=== PATIENT | female | born 1955 | race Hispanic/Latino ===

== ENCOUNTER → 2017-07-09 | Outpatient (CLI) | payer OTHER ==
--- NOTE | 2017-07-09 09:16 | Diagnostic Imaging Report ---
PROCEDURE:ABDOMINAL ULTRASOUND COMPARISON:None. INDICATIONS:GENERALIZED ABDOMEN PAIN FINDINGS: Liver: 14.7 cm in length in the right midclavicular line. Normal hepatic parenchymal echogenicity. No focal mass. Main portal vein: 0.9 cm in caliber. Hepatopedal flow. Gallbladder: Large shadowing calculus within the gallbladder lumen. No wall thickening or pericholecystic fluid. Common Bile Duct: 0.6 cm in caliber, upper limit of normal.. No echogenic filling defect. Sonographic Stewart's sign: Reported as negative. Right kidney: 11 cm in length. No solid or cystic mass, or echogenic calculi. Mild hydronephrosis. Normal renal cortical echogenicity. Left kidney: 10.9 cm in length. No solid or cystic mass, echogenic calculi, or hydronephrosis. Normal renal cortical echogenicity. Spleen: 7.8 cm in length. Uniform parenchymal echotexture. Pancreas: The visualized portions of the pancreas are normal. Inferior vena cava: Patent. Aorta: Non-aneurysmal. Ascites: None. CONCLUSION: Cholelithiasis without sonographic evidence of acute cholecystitis. Mild right hydronephrosis without obstructing proximal calculus identified. CT of the abdomen and pelvis without contrast (renal stone protocol) is suggested for further evaluation for distal obstructing calculus. Dictated by: Jay De Luna M.D. on 07/09/2017 at 9:18 Electronically approved by: Jay De Luna M.D. on 07/09/2017 at 9:18
== END ==
LOC: US 08:11
PROVIDERS: ATTEND Internal Medicine
DX: R10.84 Generalized abdominal pain (principal)
CPT/HCPCS: 76700

== ENCOUNTER → 2017-08-13 | Outpatient (CLI) | payer OTHER ==
--- NOTE | 2017-08-13 18:51 | Diagnostic Imaging Report ---
Hepatobiliary Scan with Gallbladder Ejection Fraction Clinical information: Gallstones; RUQ abdominal pain Report: Following intravenous administration of 5.8 millicuries of Tc-99m mebrofenin, dynamic images of the abdomen in the anterior projection were obtained through 30 minutes. Sincalide (CCK analog) 1.4 micrograms was administered intravenously over 30 minutes with additional imaging for determination of gallbladder ejection fraction. Perfusion to the liver is normal. Extraction of tracer from the blood pool by the liver parenchyma is normal. Tracer is seen promptly within the biliary tract. The gallbladder begins to fill by 6 minutes post-injection of tracer and fills adequately. Tracer is seen in the small bowel during the sincalide infusion. The gallbladder ejection fraction with administration of sincalide is 83% (normal greater than 40%). Impression: 1. Filling of the gallbladder excludes the diagnosis of acute cystic duct obstruction/acute cholecystitis. 2. Normal gallbladder ejection fraction of 83% does not support the clinical diagnosis of chronic cholecystitis/gallbladder dyskinesia. Signed by: Dr. Melodie Davison M.D. on 08/13/2017 6:43 PM
== END ==
LOC: NM 13:48
PROVIDERS: ATTEND Internal Medicine
DX: K80.20 Calculus of gallbladder without cholecystitis without obstruction (principal)
CPT/HCPCS: 78227; A9537

== ENCOUNTER → 2017-10-08 | Outpatient (CLI) | payer OTHER ==
[2017-10-08 09:41] LABS: ALANINE AMINOTRANSFERASE 9 IU/L (0-55); ALBUMIN 3.5 g/dL (3.5-5.0); ALBUMIN/GLOBULIN RATIO 1.1 (0.8-2.0); ALKALINE PHOSPHATASE 74 IU/L (40-150); ANION GAP 11.8 mmol/L (8-16); BLOOD UREA NITROGEN 19 mg/dL (7-26); BUN/CREATININE RATIO 29 (6-25); CALCIUM 8.7 mg/dL (8.4-10.2); CARBON DIOXIDE 25 mmol/L (22-29); CHLORIDE 106 mmol/L (98-107); CREATININE, SERUM 0.65 mg/dL (0.57-1.11); EST GLOMERULAR FILTRATION RATE > 60 ML/MIN (60-); GLUCOSE 96 mg/dL (74-118); POTASSIUM 3.8 mmol/L (3.5-5.1); SODIUM 139 mmol/L (136-145)
--- NOTE | 2017-10-08 10:00 | Diagnostic Imaging Report ---
PROCEDURE:ABDOMINAL ULTRASOUND COMPARISON:None. INDICATIONS: GASTRITIS, EPIGASTRIC PAIN, HTN TECHNIQUE: Transverse and longitudinal images of the upper abdomen were obtained. FINDINGS: Liver: Size: 12.6 cm in the right midclavicular line, normal Appearance: Normal echogenicity, smooth contour Mass: No focal masses Spleen: Size: 8.9cm in length, normal Echogenicity: Normal Mass: No focal masses Gallbladder: Stones/Sludge: There is a 2.5 cm stone with associated shaddowing. Appearance: No wall thickening, pericholecystic fluid or hydrops. Sonographic Stewart's Sign: Negative Bile Ducts: Intrahepatic Ducts: No dilatation Extrahepatic Ducts: Common bile duct measures 0.6 cm, no dilatation Pancreas: Visualized portions of the neck and proximal body are normal. Right Kidney: Size: 11.4 cm Echogenicity: Normal Collecting System: Moderate right hydronephrosis. Stone: None Cyst/Mass: None. Left Kidney: Size: 11 cm Echogenicity: Normal Collecting System: No hydronephrosis Stone: None Cyst/Mass: A 2.8 cm left inferior pole cyst with an internal 1.2 cm calcification. Vessels: Aorta: Visualized portions are normal Inferior Vena Cava: Visualized portions and normal Main Portal Vein: 10 cm, normal size with hepatopedal flow. Free Fluid: No ascites or pleural effusions IMPRESSION: Cholelithiasis without sonographic evidence of cholecystitis. CBD measuring in the upper limits of normal at 6 mm without definite stone. Moderate right hydronephrosis. A 2.8 cm cyst in the left kidney with thick internal calcification. Given the associated complexity, a follow-up ultrasound or renal protocol CT is suggested in 6 months to assess for stability. Dictated by: CHASE DRAKE M.D. on 10/08/2017 at 10:06 Electronically approved by: CHASE DRAKE M.D. on 10/08/2017 at 10:06
== END ==
LOC: US 08:10
PROVIDERS: ATTEND Internal Medicine Gastroenterology
DX: R10.13 Epigastric pain (principal); K29.70 Gastritis, unspecified, without bleeding; I10 Essential (primary) hypertension; K80.20 Calculus of gallbladder without cholecystitis without obstruction; N13.30 Unspecified hydronephrosis
CPT/HCPCS: 36415; 76700; 80053

== ENCOUNTER → 2017-10-12 | Day surgery (SDC) | payer OTHER ==
[~2017-10-12] MED LIST: CEFTRIAXONE SOD 1 GM VIAL ONE; DEXAMETHASONE SOD PHOS INJ 4 MG/ML VIAL ONE; FENTANYL CITRATE/PF 100MCG/2 ML INJ ONE; IOPAMIDOL 300MG/ML 50ML INFUS..BTL IV ONE; IRON325 M1 PO; LIDOCAINE HCL 2% LOCAL INJ 5 ML SDV VIAL INJ ONE; METHIMAZOLE10 MG PO; MIDAZOLAM HCL 2 MG/2 ML VIAL ONE; OMEPRAZOLE40 MG PO; ONDANSETRON HCL INJ 2 MG/ML VIAL ONE; PROPOFOL IV EMULSION 10 MG/ML 20 ML VIAL ONE; SEVOFLURANE INHAL SOLN 250 ML PEN BTL ONE; TYLENOL EXTRA500 MG PO; ZESTRIL20 MG PO
--- NOTE | 2017-12-04 17:10 | Operative Report ---
DATE OF PROCEDURE: October 12, 2017 PREOPERATIVE DIAGNOSES: 1. Right ureteropelvic junction obstruction. 2. Right hydronephrosis due to obstruction. 3. Urinary tract infections. POSTOPERATIVE DIAGNOSES: 1. Right ureteropelvic junction obstruction. 2. Right hydronephrosis due to obstruction. 3. Urinary tract infections. 4. Grade 2 to 3 cystocele. 5. Urethral hypermobility. 6. Atrophic (senile) vaginitis. OPERATIONS PERFORMED: 1. Cystourethroscopy with bilateral ureteral catheterization and retrograde ureteropyelography (separate procedure performed for the urinary tract infections). 2. Interpretation of retrograde ureteropyelography. 3. Supervision of fluoroscopy. No radiologist present. 4. Cystourethroscopy with dilation of ureteropelvic junction obstruction on the right-hand side. 5. Radiological services for the supervision and interpretation of stricture dilation. 6. Pelvic examination under anesthesia. ANESTHESIA: General. COMPLICATIONS: None. CLINICAL SUMMARY: Claudia Ruggiero is a 61-year-old woman with right-sided hydronephrosis. She has a history of right-sided stone. She has a history of ESWL and inability to stent. She has a history of percutaneous nephrostomy on the right-hand side. She is brought to the operating room for evaluation of her right-sided system and management as needed. She is aware of the risks of bleeding, infection, injury to adjacent structures, need for additional procedures and elected to proceed. OPERATIVE PROCEDURE IN DETAIL: Informed consent was verified. Claudia Ruggiero was properly identified, taken to the operating room and placed on the cystoscopy table in supine position. Anesthesia was uneventfully begun. The patient was then carefully and gently repositioned in the dorsal lithotomy position with all pressure points well padded. Her genitalia were prepared and draped in the usual sterile fashion. A 22.5-[place] Islander cystoscope sheath with the obturator in place was atraumatically inserted into the patient's urethra, and the bladder was drained. Panendoscopy of the urinary bladder revealed no suspicious mucosal lesions, no tumors, no stones and no diverticula. Normally positioned and configured ureteral orifices were identified. A ureteral catheter was used to cannulate each ureter, and retrograde ureteropyelograms were performed. Utilizing a guidewire, we negotiated a guidewire up into the proximal collecting system on the right-hand side. We then placed a double-lumen ureteral catheter over this guidewire to the level of UPJ. Contrast was injected. We then utilized the double-lumen ureteral catheter as a coaxial dilator sheath as we dilated across the obstructed UPJ region. We obtained a hydronephrotic drip that was clear. With cystoscopic and fluoroscopic guidance, a right-sided indwelling ureteral stent was then placed. It was coiled in the patient's kidney as well as the patient's bladder. The retaining suture was cut short. Patient's bladder was then drained. The cystoscope was withdrawn. Pelvic examination under anesthesia revealed a grade 2 to 3 cystocele with urethral hypermobility and atrophic vaginitis. No abnormal palpable pelvic masses could be appreciated. There were no obvious mucosal lesions. The patient was then uneventfully reversed from anesthesia and taken to the recovery room in stable condition. Interpretation of retrograde ureteropyelography: Contrast was instilled in retrograde fashion bilaterally. The left side was unremarkable. There were no tumors, no stones and no diverticula. Unobstructed drainage was observed fluoroscopically. The right ureter was unremarkable. There was obstruction at the UPJ region with severe hydronephrosis and caliceal blunting with a capacious renal pelvis. The stent was in good position coiled in the patient's kidney as well as the patient's bladder at the end of the case. The patient was uneventfully reversed from anesthesia and taken to the recovery room in stable condition. There were no complications to the procedure. She tolerated the procedure well. Will plan on obtaining a renogram without Lasix to evaluate the function of her kidney with the stent in place, and hopefully she will have enough renal function that we may proceed with a right pyeloplasty. Job#: [id number] EV cc:RIA GARCIA MD
--- OUTSIDE RECORDS SUMMARY | 2017-12-06 00:44 | XMS REPORT ---
Author Author [facility] Address Unknown Phone Unavailable Care Team Providers Care Android Programmer Name Role Phone CHAPITO GUTHRIE Unavailable Unavailable MITCHELL, AMBALLYN Unavailable Unavailable THELMA, TRAVIS Unavailable Unavailable GARCIA, RIA Unavailable Unavailable Problems This patient has no known problems. Allergies, Adverse Reactions, Alerts This patient has no known allergies or adverse reactions. Medications This patient has no known medications. Results Test Description Test Time Test Comments Text Results Atomic Results Result Comments RENAL SCAN W/FLOW FUNCTION 2017-11-23 13:47:00 [place] [address] Patient Name: LACEY VELEZ MR #: [id number] : 1955 Age/Sex: 62/ F Req #: [id number] Adm Physician: Ordered by: CHAPITO GUTHRIE MD Report #: [id number] Location: [place] Room/Bed: Procedure: [id number] NM/RENAL SCAN W/FLOW FUNCTION Exam Date: 11/23/17 Exam Time: 0845 REPORT STATUS: Signed Renal Scan Reason for exam: 62 F with crossing vessel and stricture of ureter without hydronephrosis. Has stent in right ureter. Radiopharmaceutical: Tc-99m MAG3 10 mCi Report: After administration of the radiopharmaceutical, dynamic images of the kidneys were obtained through 40 minutes. LEFT KIDNEY: Perfusion is prompt. The left kidney has a normal reniform shape. Extraction of tracer from the blood pool is normal. Clearance of tracer from the renal parenchyma is prompt. The pelvicaliceal system is not dilated. There is no significant increase in pooling of tracer within the pelvicaliceal system. Drainage of tracer from the pelvicaliceal system is normal. No significant stasis of tracer is seen in the left ureter. RIGHT KIDNEY: Perfusion is prompt. The kidney has a distorted reniform shape with irregular contours and mildly thinned renal cortex. The kidney is reduced in size compared to the left kidney. Extraction of tracer from the blood pool is normal. Clearance of tracer from the renal parenchyma is prompt. There are prominent calices in the kidney but the renal pelvis is not dilated. Increased pooling of tracer is seen within the pelvicaliceal system. Drainage of tracer from the pelvicaliceal system is extremely slow. No significant stasis of tracer is seen in the right ureter. DIFFERENTIAL RENAL FUNCTION: Left kidney 58% and right kidney 42%. Impression: 1. The left kidney shows generally normal function. No hydronephrosis is present. Obstruction is not suspected. 2. Minimal scarring is seen in the right kidney although differential renal function is minimally decreased at 42%. Caliectasis is present but the renal pelvis is not dilated. Physiologically significant obstruction of the renal collecting system at the UPJ cannot be excluded given the very slow drainage of the pelvicalyceal system. Signed by: Dr. Joselito Davison M.D. on 11/23/2017 2 :00 PM Dictated By: JOSELITO DAVISON MD 1400 Transcribed By: MECHE on 11/23/17 1400 COPY TO: CHAPITO GUTHRIE MD CHEST SINGLE (PORTABLE) 2017-10-18 12:31:00 [place] [address] Patient Name: LACEY VELEZ MR #: [id number] : 1955 Age/Sex: 61/ F Req #: [id number] Adm Physician: Ordered by: JESSE MEDRANO MD Report #: [id number] Location: ER Room/Bed: ____ Procedure: [id number] DX/CHEST SINGLE (PORTABLE) Exam Date: 10/18/17 Exam Time: 1049 REPORT STATUS: Signed EXAM: CHEST SINGLE (PORTABLE), AP Portable DATE: 10/18/2017 10:49 AM INDICATION: Chest pain COMPARISON: None FINDINGS: LINES/TUBES: None LUNGS: No consolidations or edema. PLEURA: No effusions or pneumothorax. HEART AND MEDIASTINUM: Normal size and contour. There is calcification within the aorta. BONES AND SOFT TISSUES: No acute findings. Mild degenerative changes of the spine. IMPRESSION: No acute thoracic abnormality. Signed by: Dr. Kimberlee Saxena DO on 10/18/2017 12:33 PM Dictated By: KIMBERLEE SAXENA DO 1233 Transcribed By: MECHE on 10/18/17 1233 COPY TO: JESSE MEDRANO MD US ABDOMEN COMPLETE 2017-10-08 10:06:00 [place] [address] Patient Name: LACEY VELEZ MR #: [id number] : 1955 Age/Sex: 61/F Req #: [id number] Adm Physician: Ordered by: TRAVIS RENEE MD Report #: [id number] Location: Room/Bed: ___ Procedure: US/US ABDOMEN COMPLETE Exam Date: Exam Time: REPORT STATUS: Signed PROCEDURE: ABDOMINAL ULTRASOUND COMPARISON: None. INDICATIONS: GASTRITIS, EPIGASTRIC PAIN, HTN TECHNIQUE: Transverse and longitudinal images of the upper abdomen were obtained. FINDINGS: Liver: Size: 12.6 cm in the right midclavicular line, normal Appearance: Normal echogenicity, smooth contour Mass: No focal masses Spleen: Size: 8.9cm in length, normal Echogenicity: Normal Mass: No focal masses Gallbladder: Stones/ Sludge: There is a 2.5 cm stone with associated shaddowing. Appearance: No wall thickening, pericholecystic fluid or hydrops. Sonographic Stewart's Sign: Negative Bile Ducts: Intrahepatic Ducts: No dilatation Extrahepatic Ducts: Common bile duct measures 0.6 cm, no dilatation Pancreas: Visualized portions of the neck and proximal body are normal. Right Kidney: Size: 11.4 cm Echogenicity: Normal Collecting System: Moderate right hydronephrosis. Stone: None Cyst/Mass: None. Left Kidney: Size: 11 cm Echogenicity: Normal Collecting System: No hydronephrosis Stone: None Cyst/Mass: A 2.8 cm left inferior pole cyst with an internal 1.2 cm calcification. Vessels: Aorta: Visualized portions are normal Inferior Vena Cava: Visualized portions and normal Main Portal Vein: 10 cm , normal size with hepatopedal flow. Free Fluid: No ascites or pleural effusions IMPRESSION: Cholelithiasis without sonographic evidence of cholecystitis. CBD measuring in the upper limits of normal at 6 mm without definite stone. Moderate right hydronephrosis. A 2.8 cm cyst in the left kidney with thick internal calcification. Given the associated complexity, a follow-up ultrasound or renal protocol CT is suggested in 6 months to assess for stability. Dictated by: CHASE DRAKE M.D. on 10/08/2017 at 10:06 Electronically approved by: CHASE DRAKE M.D. on 10/08/2017 at 10:06 Dictated By: CHASE DRAKE MD 1006 Transcribed By: HELENA on 10/08/17 1006 COPY TO: TRAVIS RENEE MD HEPTOBILIARY W PHARM 2017-08-13 18:41:00 [place] [address] Patient Name: LACEY VELEZ MR #: [id number] : 1955 Age/Sex: 61/F Re #: [id number] [facility] Physician: Ordered by: RIA GARCIA MD Report #: [id number] Location: [place] Room/Bed: Procedure: [id number] NM/HEPTOBILIARY W PHARM Exam Date: Exam Time: REPORT STATUS: Signed Hepatobiliary Scan with Gallbladder Ejection Fraction Clinical information: Gallstones; RUQ abdominal pain Report: Following intravenous administration of 5.8 millicuries of Tc-99m mebrofenin, dynamic images of the abdomen in the anterior projection were obtained through 30 minutes. Sincalide (CCK analog) 1.4 micrograms was administered intravenously over 30 minutes with additional imaging for determination of gallbladder ejection fraction. Perfusion to the liver is normal. Extraction of tracer from the blood pool by the liver parenchyma is normal. Tracer is seen promptly within the biliary tract. The gallbladder begins to fill by 6 minutes post-injection of tracer and fills adequately. Tracer is seen in the small bowel during the sincalide infusion. The gallbladder ejection fraction with administration of sincalide is 83% ( normal greater than 40%). Impression: 1. Filling of the gallbladder excludes the diagnosis of acute cystic duct obstruction/acute cholecystitis. 2. Normal gallbladder ejection fraction of 83% does not support the clinical diagnosis of chronic cholecystitis/gallbladder dyskinesia. Signed by: Dr. Joselito Davison M.D. on 08/13/2017 6:43 PM Dictated By: JOSELITO DAVISON MD 42 Transcribed By: MECHE on 08/13/171842 COPY TO: RIA GARCIA MD US ABDOMEN COMPLETE [facility] [address] Patient Name: LACEY VELEZ MR #: [id number] : 1955 Age/Sex: 61/F Req #: [id number] Adm Physician: Ordered by: RIA GARCIA MD Report #: [id number] Location: US Room/Bed: Procedure: [id number] US/US ABDOMEN COMPLETE Exam Date: Exam Time: REPORT STATUS: Signed PROCEDURE: ABDOMINAL ULTRASOUND COMPARISON: None. INDICATIONS: GENERALIZED ABDOMEN PAIN FINDINGS: Liver: 14.7 cm in length in the right midclavicular line. Normal hepatic parenchymal echogenicity. No focal mass. Main portal vein: 0.9 cm in caliber. Hepatopedal flow. Gallbladder: Large shadowing calculus within the gallbladder lumen. No wall thickening or pericholecystic fluid. Common Bile Duct: 0.6 cm in caliber, upper limit of normal.. No echogenic filling defect. Sonographic Stewart's sign: Reported as negative. Right kidney: 11 cm in length. No solid or cystic mass, or echogenic calculi. Mild hydronephrosis. Normal renal cortical echogenicity. Left kidney: 10.9 cm in length. No solid or cystic mass, echogenic calculi, or hydronephrosis. Normal renal cortical echogenicity. Spleen: 7.8 cm in length. Uniform parenchymal echotexture. Pancreas: The visualized portions of the pancreas are normal. Inferior vena cava: Patent. Aorta: Non-aneurysmal. Ascites : None. CONCLUSION: Cholelithiasis without sonographic evidence of acute cholecystitis. Mild right hydronephrosis without obstructing proximal calculus identified. CT of the abdomen and pelvis without contrast ( renal stone protocol) is suggested for further evaluation for distal obstructing calculus. Dictated by: Barry Vicente M.D. on 09/2017 at 9:18 Electronically approved by: Barry Vicente M.D. on 2017 at 9:18 Dictated By: BARRY VICENTE MD 7 Transcribed By: HELENA on 07/09/17917 COPY TO: RIA GARCIA MD
== END | disposition home or self-care (01) ==
LOC: OR 07:58
PROVIDERS: ATTEND Urology
DX: N13.0 Hydronephrosis with ureteropelvic junction obstruction (principal); N39.0 Urinary tract infection, site not specified; N81.10 Cystocele, unspecified; N36.41 Hypermobility of urethra; N95.2 Postmenopausal atrophic vaginitis; N39.3 Stress incontinence (female) (male); N26.9 Renal sclerosis, unspecified; K80.20 Calculus of gallbladder without cholecystitis without obstruction; I10 Essential (primary) hypertension; K21.9 Gastro-esophageal reflux disease without esophagitis; Z01.810 Encounter for preprocedural cardiovascular examination; Z68.30 Body mass index [BMI] 30.0-30.9, adult; Z87.442 Personal history of urinary calculi; Z84.1 Family history of disorders of kidney and ureter
CPT/HCPCS: 52332; 52342; 74420; 93005; C2617; J0696; J1100; J2001; J2250; J2405; Q9967

== ENCOUNTER 2017-10-18 09:49 | Emergency (ER) | payer OTHER ==
[~2017-10-18] VITALS: Ht 149.9 cm; Wt 64.9 kg
[~2017-10-18 09:49] MED LIST changes: -CEFTRIAXONE SOD 1 GM VIAL ONE; -DEXAMETHASONE SOD PHOS INJ 4 MG/ML VIAL ONE; -FENTANYL CITRATE/PF 100MCG/2 ML INJ ONE; -IOPAMIDOL 300MG/ML 50ML INFUS..BTL IV ONE; -LIDOCAINE HCL 2% LOCAL INJ 5 ML SDV VIAL INJ ONE; -MIDAZOLAM HCL 2 MG/2 ML VIAL ONE; -ONDANSETRON HCL INJ 2 MG/ML VIAL ONE; -PROPOFOL IV EMULSION 10 MG/ML 20 ML VIAL ONE; -SEVOFLURANE INHAL SOLN 250 ML PEN BTL ONE
[2017-10-18] MEDS ORDERED: SODIUM CHLORIDE 0.9% 1000ML 1,000 ML IV SCH (10:45)
[2017-10-18 11:08] LABS: BASOPHILS # (AUTO) 0.1 (0.0-0.1); BASOPHILS % 0.6 % (0.0-1.0); EOSINOPHILS # (AUTO) 0.2 (0.0-0.4); EOSINOPHILS % 2.1 % (0.0-6.0); HEMATOCRIT 37.8 % (34.2-44.1); HEMOGLOBIN 12.4 g/dL (12.0-16.0); LYMPHOCYTES # (AUTO) 1.1 (1.0-3.2); LYMPHOCYTES % 13.6 % (18.0-39.1); MEAN CORPUSCULAR HEMOGLOBIN 29.3 pg (28-32); MEAN CORPUSCULAR HGB CONC 32.8 g/dL (31-35); MEAN CORPUSCULAR VOLUME 89.4 fL (81-99); MONOCYTES # (AUTO) 0.5 (0.2-0.8); MONOCYTES % 5.6 % (4.4-11.3); NEUTROPHILS # (AUTO) 6.4 (2.1-6.9); NEUTROPHILS % 77.7 % (38.7-80.0); PLATELET COUNT 372 x10e3/uL (140-360); RED BLOOD COUNT 4.23 x10e6/uL (3.6-5.1); RED CELL DISTRIBUTION WIDTH 12.4 % (11.7-14.4)
[2017-10-18 11:25] LABS: BILIRUBIN,URINE NEGATIVE (NEGATIVE); CLARITY,URINE CLEAR (CLEAR); COLOR,URINE YELLOW (YELLOW); KETONES,URINE NEGATIVE (NEGATIVE); LEUKOCYTE ESTERASE ,URINE 1+ (NEGATIVE); NITRITE,URINE NEGATIVE (NEGATIVE); PROTEIN,URINE DIPSTICK NEGATIVE (NEGATIVE); URINE UROBILINOGEN 0.2 mg/dL (0.2 - 1)
[2017-10-18 11:29] LABS: ALANINE AMINOTRANSFERASE 12 IU/L (0-55); ALBUMIN 3.9 g/dL (3.5-5.0); ALBUMIN/GLOBULIN RATIO 1.1 (0.8-2.0); ALKALINE PHOSPHATASE 70 IU/L (40-150); ANION GAP 14.1 mmol/L (8-16); BLOOD UREA NITROGEN 12 mg/dL (7-26); BUN/CREATININE RATIO 17 (6-25); CALCIUM 9.5 mg/dL (8.4-10.2); CARBON DIOXIDE 28 mmol/L (22-29); CHLORIDE 104 mmol/L (98-107); CREATINE KINASE 28 IU/L (29-168); CREATININE, SERUM 0.72 mg/dL (0.57-1.11); EST GLOMERULAR FILTRATION RATE > 60 ML/MIN (60-); GLUCOSE 104 mg/dL (74-118); POTASSIUM 4.1 mmol/L (3.5-5.1); SODIUM 142 mmol/L (136-145)
[2017-10-18 11:37] LABS: BACTERIA,URINE MODERATE /HPF; EPITHELIAL CELLS,URINE FEW /LPF; RBC,URINE 0-5 /HPF (0-5)
--- NOTE | 2017-10-18 12:36 | Diagnostic Imaging Report ---
EXAM: CHEST SINGLE (PORTABLE), AP Portable DATE: 10/18/2017 10:49 AM INDICATION: Chest pain COMPARISON: None FINDINGS: LINES/TUBES: None LUNGS: No consolidations or edema. PLEURA: No effusions or pneumothorax. HEART AND MEDIASTINUM: Normal size and contour. There is calcification within the aorta. BONES AND SOFT TISSUES: No acute findings. Mild degenerative changes of the spine. IMPRESSION: No acute thoracic abnormality. Signed by: Dr. Eloy Saxena DO on 10/18/2017 12:33 PM
[2017-10-18 13:19] VITALS: BP 145/64
== END 2017-10-18 13:23 | disposition home or self-care (01) ==
LOC: ER 09:49
DX: Z03.89 Encounter for observation for other suspected diseases and conditions ruled out (principal)
CPT/HCPCS: 36415; 71045; 80053; 81001; 82550; 82553; 84484; 85025; 87086; 93005; 99284; J7030

== ENCOUNTER → 2017-11-23 | Outpatient (CLI) | payer OTHER ==
--- NOTE | 2017-11-23 14:04 | Diagnostic Imaging Report ---
Renal Scan Reason for exam: 62 F with crossing vessel and stricture of ureter without hydronephrosis. Has stent in right ureter. Radiopharmaceutical: Tc-99m MAG3 10 mCi Report: After administration of the radiopharmaceutical, dynamic images of the kidneys were obtained through 40 minutes. LEFT KIDNEY: Perfusion is prompt. The left kidney has a normal reniform shape. Extraction of tracer from the blood pool is normal. Clearance of tracer from the renal parenchyma is prompt. The pelvicaliceal system is not dilated. There is no significant increase in pooling of tracer within the pelvicaliceal system. Drainage of tracer from the pelvicaliceal system is normal. No significant stasis of tracer is seen in the left ureter. RIGHT KIDNEY: Perfusion is prompt. The kidney has a distorted reniform shape with irregular contours and mildly thinned renal cortex. The kidney is reduced in size compared to the left kidney. Extraction of tracer from the blood pool is normal. Clearance of tracer from the renal parenchyma is prompt. There are prominent calices in the kidney but the renal pelvis is not dilated. Increased pooling of tracer is seen within the pelvicaliceal system. Drainage of tracer from the pelvicaliceal system is extremely slow. No significant stasis of tracer is seen in the right ureter. DIFFERENTIAL RENAL FUNCTION: Left kidney 58% and right kidney 42%. Impression: 1. The left kidney shows generally normal function. No hydronephrosis is present. Obstruction is not suspected. 2. Minimal scarring is seen in the right kidney although differential renal function is minimally decreased at 42%. Caliectasis is present but the renal pelvis is not dilated. Physiologically significant obstruction of the renal collecting system at the UPJ cannot be excluded given the very slow drainage of the pelvicalyceal system. Signed by: Dr. Melodie Davison M.D. on 11/23/2017 2:00 PM
== END ==
LOC: NM 08:08
PROVIDERS: ATTEND Urology
DX: N13.5 Crossing vessel and stricture of ureter without hydronephrosis (principal)
CPT/HCPCS: 78707; A9562

== ENCOUNTER 2017-12-28 10:23 | Inpatient (IN) | payer OTHER ==
[2017-12-26 12:32] LABS: BASOPHILS % 0.5 % (0.0-1.0); EOSINOPHILS # (AUTO) 0.1 (0.0-0.4); EOSINOPHILS % 1.3 % (0.0-6.0); HEMATOCRIT 34.9 % (34.2-44.1); HEMOGLOBIN 11.2 g/dL (12.0-16.0); LYMPHOCYTES # (AUTO) 1.9 (1.0-3.2); LYMPHOCYTES % 24.4 % (18.0-39.1); MEAN CORPUSCULAR HEMOGLOBIN 29.9 pg (28-32); MEAN CORPUSCULAR HGB CONC 32.1 g/dL (31-35); MEAN CORPUSCULAR VOLUME 93.1 fL (81-99); MONOCYTES # (AUTO) 0.5 (0.2-0.8); MONOCYTES % 5.7 % (4.4-11.3); NEUTROPHILS # (AUTO) 5.4 (2.1-6.9); NEUTROPHILS % 67.8 % (38.7-80.0); PLATELET COUNT 363 x10e3/uL (140-360); RED BLOOD COUNT 3.75 x10e6/uL (3.6-5.1); RED CELL DISTRIBUTION WIDTH 12.9 % (11.7-14.4)
[2017-12-26 12:58] LABS: ALANINE AMINOTRANSFERASE 10 IU/L (0-55); ALBUMIN 3.9 g/dL (3.5-5.0); ALBUMIN/GLOBULIN RATIO 1.2 (0.8-2.0); ALKALINE PHOSPHATASE 72 IU/L (40-150); ANION GAP 12.5 mmol/L (8-16); BLOOD UREA NITROGEN 15 mg/dL (7-26); BUN/CREATININE RATIO 19 (6-25); CALCIUM 9.2 mg/dL (8.4-10.2); CARBON DIOXIDE 27 mmol/L (22-29); CHLORIDE 105 mmol/L (98-107); CREATININE, SERUM 0.79 mg/dL (0.57-1.11); EST GLOMERULAR FILTRATION RATE > 60 ML/MIN (60-); GLUCOSE 125 mg/dL (74-118); POTASSIUM 4.5 mmol/L (3.5-5.1); SODIUM 140 mmol/L (136-145)
[~2017-12-28] VITALS: Ht 152.4 cm; Wt 61.7 kg
[2017-12-28] MEDS: D5.45%NS/KCL 20MEQ 1,000 ML IV SCH ×2 (01:15→17:35)
[~2017-12-28 10:23] MED LIST changes: +PHENAZOPYRIDIN100 MG PO
[2017-12-28] MEDS ORDERED: CEFOXITIN SOD 1 GM VIAL ONE (10:36)
[2017-12-28] MEDS ORDERED: GLYCOPYRROLATE INJ 1MG/ 5 ML SYR ONE (11:36)
[2017-12-28] MEDS ORDERED: PROPOFOL IV EMULSION 10 MG/ML 20 ML VIAL ONE (11:36)
[2017-12-28] MEDS ORDERED: DEXAMETHASONE SOD PHOS INJ 4 MG/ML VIAL ONE (11:36)
[2017-12-28] MEDS ORDERED: SEVOFLURANE INHAL SOLN 250 ML PEN BTL ONE (11:36)
[2017-12-28] MEDS ORDERED: ROCURONIUM BROMIDE 10 MG/ML 5ML VIAL ONE (11:36)
[2017-12-28] MEDS ORDERED: ONDANSETRON HCL INJ 2 MG/ML VIAL ONE (11:36)
[2017-12-28] MEDS ORDERED: NEOSTIGMINE 5 MG/5ML SYR ONE (11:36)
[2017-12-28] MEDS ORDERED: LIDOCAINE HCL 2% LOCAL INJ 5 ML SDV VIAL INJ ONE (11:36)
[2017-12-28] MEDS ORDERED: BUPIVACAINE 0.25%/EPI 30ML SDV INJ ONE (11:37)
[2017-12-28] MEDS ORDERED: IOPAMIDOL 610MG/1ML 300 MG/ML VIAL IV ONE (11:37)
[2017-12-28] MEDS ORDERED: GELATIN SPONGE 12-7MM ONE (11:37)
[2017-12-28] MEDS ORDERED: HYDROMORPHONE 2MG/ML 2 MG/ML ML ONE (14:43)
[2017-12-28] MEDS ORDERED: CEFOXITIN 1GM/ NS 50ML 50 ML IV SCH (16:00)
[2017-12-28] MEDS ORDERED: NALOXONE HCL INJ 0.4 MG/ML AMP IV PRN (16:00)
[2017-12-28] MEDS ORDERED: MORPHINE SULFATE 1 MG/ML 30ML PCA IV PRN (16:00)
[2017-12-28] MEDS ORDERED: DIPHENHYDRAMINE HCL INJ 50 MG/ML VIAL IM PRN (16:00)
[2017-12-28] MEDS ORDERED: FENTANYL CITRATE/PF 100MCG/2 ML INJ ONE (16:16)
[2017-12-28] MEDS ORDERED: MIDAZOLAM HCL 2 MG/2 ML VIAL ONE (16:16)
[2017-12-28] MEDS ORDERED: MORPHINE SULFATE 1 MG/ML 30ML PCA ONE (16:37)
[2017-12-28] MEDS: DOCUSATE SODIUM 100 MG CAP PO SCH (17:00)
[2017-12-28 17:20] VITALS: BP 136/84
[2017-12-28 17:31] VITALS: BP 143/65
[2017-12-28] MEDS: SODIUM CHLORIDE 0.9% 250ML IRRIG IR SCH ×2 (17:50→21:11)
--- NOTE | 2017-12-28 18:03 | Diagnostic Imaging Report ---
EXAMINATION: CHEST SINGLE (PORTABLE) INDICATION: Rule out pneumothorax. COMPARISON: 10/18/2017. FINDINGS: TUBES and LINES: NG tube with distal tip projected on the expected location of the mid to distal esophagus. LUNGS: Mild bibasilar subsegmental atelectasis. There is no evidence of pneumonia or pulmonary edema. PLEURA: No pleural effusion or pneumothorax. HEART AND MEDIASTINUM: The cardiomediastinal silhouette is unremarkable. BONES AND SOFT TISSUES: No acute osseous lesion. UPPER ABDOMEN: There is lucency beneath the right hemidiaphragm consistent with a small volume pneumoperitoneum. IMPRESSION: 1. NG tube with distal tip in the mid to distal esophagus. Recommend advancement into the stomach (approximately 10 cm).Discussed with nurse Valencia at 5:50 12/28/[address] Amaro at 6 pm on 12/28/2017. Signed by: Dr. Anselmo Read M.D. on 12/28/2017 6:00 PM
--- NOTE | 2017-12-28 19:17 | Operative Report ---
DATE OF PROCEDURE: December 28, 2017 PREOPERATIVE DIAGNOSES: Cholecystitis and cholelithiasis. POSTOPERATIVE DIAGNOSES: Cholecystitis and cholelithiasis. OPERATION PERFORMED: Open cholecystectomy. CHART CHANGER: Dr. Sarai Amaro. ANESTHESIA: General. COMPLICATIONS: None. ESTIMATED BLOOD LOSS: Minimal. DESCRIPTION OF PROCEDURE: Dr. Amaro was performing a pyeloplasty on this patient and intraoperatively examination revealed the gallbladder to be inflamed and contained some stones, so he asked us for an intraoperative consultation for possible cholecystectomy. At the time that we saw the patient, patient had a right lateral incision made and they had completed a pyeloplasty. Examination revealed a gallbladder that contained multiple stones and showed some signs of inflammatory changes, so our intraoperative consultation and recommendation was to go ahead and proceed with the cholecystectomy since the patient was already in good position and stable after having completion of the urological procedure that had been performed. At this point, the case was turned over to me and going right through the same incision that the patient already had made, we retracted the gallbladder and the peritoneum overlying the neck of the gallbladder was then opened and the cystic duct was identified. The cystic artery was similarly identified and the cystic artery was ligated with 2-0 silk tie, but not divided. The gallbladder was then taken off the top using the cautery and it was slowly and carefully cleared off of the liver bed all the way around all the way down to the neck. At the neck, the cystic artery was then again identified and it had been previously tied and it was then divided. The cystic duct was then ligated with a 2-0 silk tie and divided and the gallbladder was sent for pathological examination. The whole area was then thoroughly irrigated. Perfect hemostasis was ascertained, and the case was then turned over back to Dr. Amaro for closure of the wound. Job#: [id number] DANIELLA
[2017-12-28 20:00] VITALS: BP 169/75
[2017-12-28 21:11] VITALS: BP 169/75
[2017-12-28] MEDS: CEFOXITIN SOD 1 GM VIAL IV SCH (21:11)
[2017-12-29] VITALS (8 sets, daily range): BP systolic 131–180; BP diastolic 61–77
[2017-12-29] MEDS: SODIUM CHLORIDE 0.9% 250ML IRRIG IR SCH ×5 (00:26→16:00)
[2017-12-29] MEDS: D5.45%NS/KCL 20MEQ 1,000 ML IV SCH ×4 (01:15→23:00)
[2017-12-29] MEDS: ACETAMINOPHEN 1000 MG/100 ML IV PRN ×3 (04:33→19:21)
[2017-12-29 05:39] LABS: BASOPHILS % 0.1 % (0.0-1.0); HEMATOCRIT 32.8 % (34.2-44.1); HEMOGLOBIN 10.4 g/dL (12.0-16.0); LYMPHOCYTES # (AUTO) 0.7 (1.0-3.2); LYMPHOCYTES % 3.9 % (18.0-39.1); MEAN CORPUSCULAR HEMOGLOBIN 29.5 pg (28-32); MEAN CORPUSCULAR HGB CONC 31.7 g/dL (31-35); MEAN CORPUSCULAR VOLUME 93.2 fL (81-99); MONOCYTES # (AUTO) 1.5 (0.2-0.8); MONOCYTES % 7.8 % (4.4-11.3); NEUTROPHILS # (AUTO) 16.5 (2.1-6.9); NEUTROPHILS % 87.7 % (38.7-80.0); PLATELET COUNT 356 x10e3/uL (140-360); RED BLOOD COUNT 3.52 x10e6/uL (3.6-5.1); RED CELL DISTRIBUTION WIDTH 12.4 % (11.7-14.4)
[2017-12-29 06:18] LABS: ANION GAP 10.8 mmol/L (8-16); BLOOD UREA NITROGEN 12 mg/dL (7-26); BUN/CREATININE RATIO 16 (6-25); CALCIUM 8.4 mg/dL (8.4-10.2); CARBON DIOXIDE 26 mmol/L (22-29); CHLORIDE 102 mmol/L (98-107); CREATININE, SERUM 0.76 mg/dL (0.57-1.11); EST GLOMERULAR FILTRATION RATE > 60 ML/MIN (60-); GLUCOSE 162 mg/dL (74-118); POTASSIUM 4.8 mmol/L (3.5-5.1); SODIUM 134 mmol/L (136-145)
[2017-12-29] MEDS: DOCUSATE SODIUM 100 MG CAP PO SCH ×2 (09:00→17:00)
[2017-12-29] MEDS: CEFOXITIN SOD 1 GM VIAL IV SCH ×2 (09:04→21:55)
[2017-12-29] MEDS ORDERED: MORPHINE SULFATE 1 MG/ML 30ML PCA IV PRN (13:30)
[2017-12-29] MEDS ORDERED: HYDRALAZINE HCL 20 MG/ML VIAL IV PRN (14:30)
[2017-12-29] MEDS: ONDANSETRON HCL INJ 2 MG/ML VIAL IV PRN (14:45)
--- NOTE | 2017-12-29 18:44 | History and Physical ---
CHIEF COMPLAINTS 1. Gallstones. Right hydronephrosis. 1. HPI: This is a 62-year-old female with a past medical history of hypertension, right hydronephrosis, symptomatic gallstones, abdominal pain. Patient was admitted for double surgery, status post cholecystectomy open, right pyeloplasty and reversal of stent because of right hydronephrosis. Postoperatively, patient is doing better, status post removal of NG tube, n.p.o. SCD on the leg. No diarrhea. No constipation. No nausea. No vomiting. No seizures. No focal weakness. Has a low-grade fever. PAST MEDICAL HISTORY 1. Hypertension. 2. Right hydronephrosis. PAST SURGICAL HISTORY: History of right ureter stent. SOCIAL HISTORY: Patient is . Lives with the family. HABITS: Denies smoking. Denies alcohol use. Denies illicit drug use. MEDICATION LIST: Attached. FAMILY HISTORY: Noncontributory. REVIEW OF SYSTEMS GENERAL: Generalized fatigue and weakness. HEENT: No diplopia. No blurring of vision. CARDIOPULMONARY: No chest pain. No shortness of breath. No cough. ABDOMEN: Mild abdominal pain. Mild nausea. No vomiting. No diarrhea. No constipation. GENITOURINARY: Mild burning on urination. CENTRAL NERVOUS SYSTEM: No focal weakness. No seizure. PHYSICAL EXAMINATION GENERAL: This is a 62-year-old female who is alert. VITAL SIGNS: Temperature 100.1, pulse 67, respiratory rate 20, blood pressure 147/65. HEENT: Head atraumatic, normocephalic. Pupils are bilaterally equal and reactive to light. Extraocular muscles intact. Conjunctivae and sclerae normal. NECK: Supple. No JVD. No carotid bruit. SKIN: Dry. Tongue is dry. No clubbing. No cyanosis. LUNGS: Clear to auscultation and percussion bilaterally. No added sound. HEART: S1 and S2. Regular rate and rhythm. No S3. No S4. No murmur. ABDOMEN: Soft. Mild generalized tenderness. Bowel sounds hypoactive. No guarding. No rigidity. EXTREMITIES: No pedal edema. Peripheral pulses +1. CLINICAL LEADER: Grossly nonfocal. LABS: White count 18.80, hemoglobin 10.4, hematocrit 32.8, platelets are 356. Sodium 134, potassium 4.8, BUN and creatinine normal, sugar 162. ASSESSMENT 1. Open cholecystectomy. 2. Status post right pyeloplasty for right hydronephrosis and right ureteropelvic junction obstruction and reversal of stent. 3. Hypertension. 4. Postoperative care. PLAN: NG tube removed. Keep n.p.o. IV fluids. D5 and normal saline 125 mL per hour, IV cefoxitin 1 g q.12, Colace b.i.d., SCD, Tylenol p.r.n for fever. Case discussed with the patient and family, told condition and prognosis. Case discussed with nursing staff. Job#: [id number] LPA
[2017-12-30] VITALS (8 sets, daily range): BP systolic 122–156; BP diastolic 59–69
[2017-12-30] MEDS: D5.45%NS/KCL 20MEQ 1,000 ML IV SCH ×3 (02:56→23:00)
[2017-12-30 06:27] LABS: BASOPHILS % 0.1 % (0.0-1.0); EOSINOPHILS % 0.1 % (0.0-6.0); HEMATOCRIT 30.8 % (34.2-44.1); HEMOGLOBIN 9.7 g/dL (12.0-16.0); LYMPHOCYTES # (AUTO) 1.6 (1.0-3.2); LYMPHOCYTES % 10.1 % (18.0-39.1); MEAN CORPUSCULAR HEMOGLOBIN 29.8 pg (28-32); MEAN CORPUSCULAR HGB CONC 31.5 g/dL (31-35); MEAN CORPUSCULAR VOLUME 94.5 fL (81-99); MONOCYTES # (AUTO) 1.4 (0.2-0.8); MONOCYTES % 8.7 % (4.4-11.3); NEUTROPHILS # (AUTO) 12.4 (2.1-6.9); NEUTROPHILS % 80.5 % (38.7-80.0); PLATELET COUNT 322 x10e3/uL (140-360); RED BLOOD COUNT 3.26 x10e6/uL (3.6-5.1); RED CELL DISTRIBUTION WIDTH 12.7 % (11.7-14.4)
[2017-12-30 06:53] LABS: ALANINE AMINOTRANSFERASE 34 IU/L (0-55); ALBUMIN/GLOBULIN RATIO 1.1 (0.8-2.0); ALKALINE PHOSPHATASE 54 IU/L (40-150); ANION GAP 9.6 mmol/L (8-16); BLOOD UREA NITROGEN 7 mg/dL (7-26); BUN/CREATININE RATIO 10 (6-25); CALCIUM 8.7 mg/dL (8.4-10.2); CARBON DIOXIDE 28 mmol/L (22-29); CHLORIDE 106 mmol/L (98-107); EST GLOMERULAR FILTRATION RATE > 60 ML/MIN (60-); GLUCOSE 118 mg/dL (74-118); POTASSIUM 4.6 mmol/L (3.5-5.1); SODIUM 139 mmol/L (136-145)
[2017-12-30] MEDS: ONDANSETRON HCL INJ 2 MG/ML VIAL IV PRN (08:00)
[2017-12-30] MEDS: CEFOXITIN SOD 1 GM VIAL IV SCH ×2 (08:00→21:20)
[2017-12-30] MEDS: DOCUSATE SODIUM 100 MG CAP PO SCH ×2 (08:01→16:54)
[2017-12-30] MEDS: ACETAMINOPHEN 1000 MG/100 ML IV PRN (11:03)
[2017-12-30] MEDS: ACETAMINOPHEN/CODEINE 300MG - 30MG TAB PO PRN ×2 (16:54→21:21)
[2017-12-30] MEDS ORDERED: BISACODYL 10 MG SUPP PR ONE (17:00)
--- NOTE | 2017-12-30 18:10 | Diagnostic Imaging Report ---
EXAMINATION: CHEST 2 VIEWS INDICATION: Postop fever, open kidney surgery and cholecystectomy COMPARISON: Chest x-ray 12/28/2017 FINDINGS: PA and lateral views TUBES and LINES: None. LUNGS: Lungs are well inflated. There is linear subsegmental atelectasis in the lower lung zones. PLEURA: No pleural effusion or pneumothorax. HEART AND MEDIASTINUM: The cardiomediastinal silhouette is unremarkable.. BONES AND SOFT TISSUES: No focal osseous lesions. Soft tissues are unremarkable. UPPER ABDOMEN: Stable pneumoperitoneum. IMPRESSION: Bilateral subsegmental atelectasis. Tiny foci of pneumonia cannot be excluded. Signed by: Dr. Douglas Ch MD on 12/30/2017 6:06 PM
[2017-12-31] VITALS (8 sets, daily range): BP systolic 136–154; BP diastolic 62–70
[2017-12-31 05:34] LABS: BASOPHILS % 0.3 % (0.0-1.0); EOSINOPHILS # (AUTO) 0.1 (0.0-0.4); EOSINOPHILS % 0.5 % (0.0-6.0); HEMOGLOBIN 9.6 g/dL (12.0-16.0); LYMPHOCYTES # (AUTO) 1.9 (1.0-3.2); LYMPHOCYTES % 15.9 % (18.0-39.1); MEAN CORPUSCULAR HEMOGLOBIN 30.3 pg (28-32); MEAN CORPUSCULAR VOLUME 94.6 fL (81-99); MONOCYTES # (AUTO) 1.1 (0.2-0.8); MONOCYTES % 9.7 % (4.4-11.3); NEUTROPHILS # (AUTO) 8.6 (2.1-6.9); NEUTROPHILS % 73.2 % (38.7-80.0); PLATELET COUNT 289 x10e3/uL (140-360); RED BLOOD COUNT 3.17 x10e6/uL (3.6-5.1); RED CELL DISTRIBUTION WIDTH 12.3 % (11.7-14.4)
[2017-12-31 05:53] LABS: ANION GAP 9.6 mmol/L (8-16); BLOOD UREA NITROGEN 7 mg/dL (7-26); BUN/CREATININE RATIO 10 (6-25); CALCIUM 8.8 mg/dL (8.4-10.2); CARBON DIOXIDE 29 mmol/L (22-29); CHLORIDE 103 mmol/L (98-107); CREATININE, SERUM 0.67 mg/dL (0.57-1.11); EST GLOMERULAR FILTRATION RATE > 60 ML/MIN (60-); GLUCOSE 111 mg/dL (74-118); POTASSIUM 4.6 mmol/L (3.5-5.1); SODIUM 137 mmol/L (136-145)
[2017-12-31] MEDS: ACETAMINOPHEN/CODEINE 300MG - 30MG TAB PO PRN ×5 (06:05→22:37)
[2017-12-31] MEDS: D5.45%NS/KCL 20MEQ 1,000 ML IV SCH (08:12)
[2017-12-31] MEDS: DOCUSATE SODIUM 100 MG CAP PO SCH ×2 (09:01→17:27)
[2017-12-31] MEDS: CEFOXITIN SOD 1 GM VIAL IV SCH ×2 (09:01→21:30)
[2017-12-31 15:20] LABS: BASOPHILS % 0.3 % (0.0-1.0); EOSINOPHILS % 0.3 % (0.0-6.0); HEMATOCRIT 30.8 % (34.2-44.1); LYMPHOCYTES # (AUTO) 1.2 (1.0-3.2); LYMPHOCYTES % 8.4 % (18.0-39.1); MEAN CORPUSCULAR HEMOGLOBIN 30.4 pg (28-32); MEAN CORPUSCULAR HGB CONC 32.5 g/dL (31-35); MEAN CORPUSCULAR VOLUME 93.6 fL (81-99); NEUTROPHILS # (AUTO) 11.6 (2.1-6.9); NEUTROPHILS % 83.6 % (38.7-80.0); PLATELET COUNT 323 x10e3/uL (140-360); RED BLOOD COUNT 3.29 x10e6/uL (3.6-5.1); RED CELL DISTRIBUTION WIDTH 12.4 % (11.7-14.4)
[2017-12-31 17:46] LABS: CLARITY,URINE SL CLOUDY (CLEAR); COLOR,URINE YELLOW (YELLOW); LEUKOCYTE ESTERASE ,URINE TRACE (NEGATIVE)
[2017-12-31 17:47] LABS: BILIRUBIN,URINE NEGATIVE (NEGATIVE); KETONES,URINE NEGATIVE (NEGATIVE); NITRITE,URINE NEGATIVE (NEGATIVE); PROTEIN,URINE DIPSTICK NEGATIVE (NEGATIVE); URINE UROBILINOGEN 0.2 mg/dL (0.2 - 1)
[2017-12-31 18:00] LABS: EPITHELIAL CELLS,URINE FEW /LPF; WBC,URINE (MAN) 0-5 /HPF (0-5)
[2018-01-01] VITALS (8 sets, daily range): BP systolic 126–183; BP diastolic 58–77
[2018-01-01] MEDS: D5.45%NS/KCL 20MEQ 1,000 ML IV SCH (04:25)
[2018-01-01] MEDS: ACETAMINOPHEN/CODEINE 300MG - 30MG TAB PO PRN ×4 (04:30→21:00)
[2018-01-01 06:12] LABS: BASOPHILS % 0.4 % (0.0-1.0); EOSINOPHILS # (AUTO) 0.2 (0.0-0.4); EOSINOPHILS % 1.7 % (0.0-6.0); HEMATOCRIT 30.2 % (34.2-44.1); HEMOGLOBIN 9.7 g/dL (12.0-16.0); LYMPHOCYTES # (AUTO) 1.3 (1.0-3.2); LYMPHOCYTES % 13.6 % (18.0-39.1); MEAN CORPUSCULAR HGB CONC 32.1 g/dL (31-35); MEAN CORPUSCULAR VOLUME 93.5 fL (81-99); MONOCYTES # (AUTO) 0.9 (0.2-0.8); MONOCYTES % 9.4 % (4.4-11.3); NEUTROPHILS % 74.4 % (38.7-80.0); PLATELET COUNT 310 x10e3/uL (140-360); RED BLOOD COUNT 3.23 x10e6/uL (3.6-5.1); RED CELL DISTRIBUTION WIDTH 12.3 % (11.7-14.4)
[2018-01-01] MEDS: BISACODYL 10 MG SUPP PR PRN (06:18)
[2018-01-01 06:38] LABS: ALANINE AMINOTRANSFERASE 246 IU/L (0-55); ALBUMIN 2.8 g/dL (3.5-5.0); ALBUMIN/GLOBULIN RATIO 0.8 (0.8-2.0); ALKALINE PHOSPHATASE 141 IU/L (40-150); ANION GAP 13.7 mmol/L (8-16); BLOOD UREA NITROGEN 10 mg/dL (7-26); BUN/CREATININE RATIO 15 (6-25); CALCIUM 9.2 mg/dL (8.4-10.2); CARBON DIOXIDE 29 mmol/L (22-29); CHLORIDE 99 mmol/L (98-107); CREATININE, SERUM 0.65 mg/dL (0.57-1.11); EST GLOMERULAR FILTRATION RATE > 60 ML/MIN (60-); GLUCOSE 101 mg/dL (74-118); POTASSIUM 4.7 mmol/L (3.5-5.1); SODIUM 137 mmol/L (136-145)
[2018-01-01] MEDS: CEFOXITIN SOD 1 GM VIAL IV SCH ×2 (09:03→21:35)
[2018-01-01] MEDS: DOCUSATE SODIUM 100 MG CAP PO SCH ×2 (09:03→16:05)
[2018-01-01] MEDS: ONDANSETRON HCL INJ 2 MG/ML VIAL IV PRN (10:00)
--- NOTE | 2018-01-01 12:44 | Discharge Summary ---
She is a 62-year-old female patient of mine who presented with gallstone and right hydronephrosis. ADMITTING IMPRESSIONS/DIAGNOSES 1. Patient had a gallstone with cholecystitis and right hydronephrosis with a kidney stone and patient was admitted for the surgeon. Patient had an open cholecystectomy and a right pyloroplasty with stone removal and reversal of the stent. 1. Hypertension. HOSPITAL COURSE SUMMARY: Patient was admitted with the above diagnoses. Patient was taken to the OR by general surgeon and urology Dr. Amaro and Dr. Araiza. Patient had a cholecystectomy and a right pyloroplasty, and change of the stent was done and a gallbladder removal was done. Postop patient had done well, and postop care was given. Patient was given IV fluid, IV analgesics and patient was kept n.p.o. Patient had a ELENA drain that was removed. Patient was given postop antibiotic cefoxitin. Now upon stabilization patient will be discharged home with oral analgesics, Tylenol with Codeine No. 3. Patient will be followed up as outpatient. RIA GARCIA MD Job#: [id number] EV
[2018-01-01 16:39] LABS: BLOOD UREA NITROGEN 13 mg/dL (7-26); BUN/CREATININE RATIO 19 (6-25); CALCIUM 9.7 mg/dL (8.4-10.2); CARBON DIOXIDE 28 mmol/L (22-29); CHLORIDE 96 mmol/L (98-107); CREATININE, SERUM 0.69 mg/dL (0.57-1.11); EST GLOMERULAR FILTRATION RATE > 60 ML/MIN (60-); GLUCOSE 107 mg/dL (74-118); SODIUM 133 mmol/L (136-145)
[2018-01-02 00:29] VITALS: BP 130/61
[2018-01-02 05:18] VITALS: BP 147/66
[2018-01-02] MEDS: BISACODYL 10 MG SUPP PR PRN (05:34)
[2018-01-02] MEDS: ACETAMINOPHEN/CODEINE 300MG - 30MG TAB PO PRN ×2 (05:37→09:04)
[2018-01-02] MEDS ORDERED: TYLENOL WITH C1 EACH PO ×2 (06:10→06:15)
[2018-01-02 08:30] VITALS: BP 121/55
[2018-01-02 09:04] VITALS: BP 121/55
[2018-01-02] MEDS: DOCUSATE SODIUM 100 MG CAP PO SCH (09:04)
[2018-01-02] MEDS: CEFOXITIN SOD 1 GM VIAL IV SCH (09:04)
--- NOTE | 2018-02-07 02:30 | Operative Report ---
DATE OF PROCEDURE: December 28, 2017 PREOPERATIVE DIAGNOSES: 1. Right ureteropelvic junction obstruction. 2. Right indwelling ureteral stents. 3. Right hydronephrosis due to ureteral obstruction. POSTOPERATIVE DIAGNOSES: 1. Right ureteropelvic junction obstruction. 2. Right indwelling ureteral stents. 3. Right hydronephrosis due to ureteral obstruction. OPERATIONS PERFORMED: 1. Cystourethroscopy with complicated removal of right indwelling ureteral stent (separate procedure performed for the diagnosis of stent). 2. Cystourethroscopy and insertion of right indwelling ureteral stent (separate procedure performed to relieve the hydronephrosis). 3. Interpretation of retrograde ureteropyelography. 4. Supervision of fluoroscopy. No radiologist present. 5. Complicated right pyeloplasty (procedure made complicated by kidney that has had previous surgery and previous stones). MANAGER GLOBAL: Sarai Amaro MD. COMPLICATIONS: None. CLINICAL SUMMARY: Claudia Ruggiero is a 62-year-old woman who has a right ureteropelvic junction obstruction. She has a stent in place. She is brought for the above procedures. She also is complaining of her gallstones and desires that we consult general surgery for performance of cholecystectomy. She is aware the risks of bleeding, infection, injury to adjacent structures and need for additional procedures and elected to proceed. OPERATIVE PROCEDURE IN DETAIL: Informed consent was verified. Claudia Ruggiero was appropriately identified, taken to the operating room and placed on the operating table in supine position. Anesthesia was uneventfully begun. She was carefully and gently repositioned in dorsal lithotomy position with all pressure points well padded. The genitalia were prepared and draped in usual sterile fashion. A 22.5-Micronesian cystoscope sheath with a obturator in place was atraumatically inserted into the patient's urethra and the bladder was drained. Panendoscopy revealed no suspicious mucosal lesions. No tumors, no stones and no diverticula. Normally positioned and configured ureteral orifices were identified. A guidewire was then placed into the right ureter and guided to the level of the patient's kidney. The stent was then grasped completely, removed and discarded. Contrast was injected via an open-ended catheter and following this, under cystoscopic and fluoroscopic guidance, a right-sided indwelling ureteral stent was then placed. It was coiled in the patient's kidney as well as the patient's bladder. The retaining suture was cut short. Interpretation of retrograde ureteropyelography: Contrast was instilled in retrograde fashion on the right hand side. There was hydronephrosis present consistent with ureteropelvic junction obstruction. The stent was in good position, coiled in the patient's kidney as well as the patient's bladder. A Nagel catheter was placed and the patient was then repositioned on the open operating table in flank position with all pressure points carefully well padded. Her abdomen, chest and back were prepared and draped in usual sterile fashion. A flank incision was then made and carried through all layers of the abdominal wall. An extrapleural, extraperitoneal approach was utilized. We carefully isolated the kidney. We then isolated the proximal ureter where there was an obstruction. We identified the diseased portion of the proximal ureter. We then incised the ureter just below this diseased portion. We then took the renal pelvis and excised a portion of it including the ureteropelvic junction which was sent for histopathological analysis. We then spatulated the ureter. We performed the anastomosis utilizing 3-0 and 4-0 chromic suture in interrupted fashion. The anastomosis was performed over the stent that was newly placed. During this case, we had to extensively mobilize the upper pole of the kidney in order to remove all tension from the anastomotic region. Once the anastomosis was complete, the case was then turned over to Dr. Araiza for evaluating the gallbladder and determining whether cystectomy is needed and if so, performing that procedure. Dr. Araiza proceeded with performing that procedure uneventfully and then the patient was closed in layers utilizing heavy Vicryl suture in interrupted [id number] fashion in multiple layers. Skin roz were applied to the skin. A drain was placed through a separate stab incision, secured to the skin with nylon suture prior to closure. Copious irrigation was performed at each layer of the closure. There were no complications during the procedure. The patient tolerated the procedure well. Sponge, needle and instrument counts were correct x2 at the end of the case. For estimated blood loss, please refer to the anesthetic record. Plans will be to proceed with routine postoperative care and of course lifelong urological followup. Job#: [id number] CAMILA
== END 2018-01-02 11:23 | disposition home or self-care (01) | DRG 415 ==
LOC: OR 10:23 → PACU V 15:51 → MED/SURG 17:15
PROVIDERS: ADMIT Internal Medicine; ATTEND Internal Medicine
PROC: 0TP98DZ Removal of Intraluminal Device from Ureter, Via Natural or Artificial Opening Endoscopic (ICD-10-PCS; 2017-12-28)
PROC: BT141ZZ Fluoroscopy of Kidneys, Ureters and Bladder using Low Osmolar Contrast (ICD-10-PCS; 2017-12-28)
PROC: 0TB38ZX Excision of Right Kidney Pelvis, Via Natural or Artificial Opening Endoscopic, Diagnostic (ICD-10-PCS; 2017-12-28)
PROC: 0FT40ZZ Resection of Gallbladder, Open Approach (ICD-10-PCS; principal; 2017-12-28 12:30)
PROC: 0T768DZ Dilation of Right Ureter with Intraluminal Device, Via Natural or Artificial Opening Endoscopic (ICD-10-PCS; 2017-12-28 12:30)
PROC: 0TQ Urinary System, Repair (ICD-10-PCS; 2017-12-28 12:30)
DX: K80.10 Calculus of gallbladder with chronic cholecystitis without obstruction (principal); N13.0 Hydronephrosis with ureteropelvic junction obstruction; E87.0 Hyperosmolality and hypernatremia; D62 Acute posthemorrhagic anemia; N39.0 Urinary tract infection, site not specified; I10 Essential (primary) hypertension; R49.22 Hyponasality; D64.9 Anemia, unspecified; E03.9 Hypothyroidism, unspecified; F41.9 Anxiety disorder, unspecified; K21.9 Gastro-esophageal reflux disease without esophagitis; N13.5 Crossing vessel and stricture of ureter without hydronephrosis; N20.0 Calculus of kidney
CPT/HCPCS: 36415; 71045; 71046; 74420; 80048; 80053; 81001; 83735; 85025; 86850; 86900; 87040; 88304; 96361; 97139; C2617; J0694; J1100; J2001; J2250; J2270; J2405

== ENCOUNTER 2018-02-16 19:37 | Emergency (ER) | payer OTHER ==
[~2018-02-16] VITALS: Ht 180.3 cm; Wt 61.7 kg
[~2018-02-16 19:37] MED LIST changes: -BELLADONNA/OPIUM 60 MG SUPP PR ONE; -CEFTRIAXONE SOD 1 GM/NS 50 ML 50 ML IV ONE; -DESFLURANE 240 ML BTL INH ONE; -DEXAMETHASONE SOD PHOS INJ 4 MG/ML VIAL ONE; -FENTANYL CITRATE/PF 100MCG/2 ML INJ ONE; -FLUCONAZOLE 100 MG TAB PO ONE; -FLUCONAZOLE100 MG PO; -IOPAMIDOL 610MG/1ML 300 MG/ML VIAL IV ONE; -LEVOFLOXACIN500 MG PO; -LIDOCAINE HCL 2% LOCAL INJ 5 ML SDV VIAL INJ ONE; -MIDAZOLAM HCL 2 MG/2 ML VIAL ONE; -ONDANSETRON HCL INJ 2 MG/ML VIAL ONE; -PROPOFOL IV EMULSION 10 MG/ML 20 ML VIAL ONE
[2018-02-16] MEDS ORDERED: FLUCONAZOLE100 MG PO (19:48)
[2018-02-16] MEDS ORDERED: LEVOFLOXACIN500 MG PO (19:48)
[2018-02-16 20:12] LABS: BASOPHILS % 0.1 % (0.0-1.0); EOSINOPHILS % 0.1 % (0.0-6.0); HEMATOCRIT 37.7 % (34.2-44.1); LYMPHOCYTES # (AUTO) 0.8 (1.0-3.2); MEAN CORPUSCULAR HEMOGLOBIN 28.8 pg (28-32); MEAN CORPUSCULAR HGB CONC 31.8 g/dL (31-35); MEAN CORPUSCULAR VOLUME 90.4 fL (81-99); MONOCYTES # (AUTO) 0.1 (0.2-0.8); MONOCYTES % 1.2 % (4.4-11.3); NEUTROPHILS # (AUTO) 8.4 (2.1-6.9); NEUTROPHILS % 89.6 % (38.7-80.0); PLATELET COUNT 412 x10e3/uL (140-360); RED BLOOD COUNT 4.17 x10e6/uL (3.6-5.1); RED CELL DISTRIBUTION WIDTH 11.9 % (11.7-14.4)
[2018-02-16 20:17] LABS: ALANINE AMINOTRANSFERASE 8 IU/L (0-55); ALBUMIN 3.6 g/dL (3.5-5.0); ALBUMIN/GLOBULIN RATIO 0.9 (0.8-2.0); ALKALINE PHOSPHATASE 83 IU/L (40-150); ANION GAP 16.7 mmol/L (8-16); BLOOD UREA NITROGEN 13 mg/dL (7-26); BUN/CREATININE RATIO 18 (6-25); CALCIUM 9.3 mg/dL (8.4-10.2); CARBON DIOXIDE 21 mmol/L (22-29); CHLORIDE 106 mmol/L (98-107); CREATINE KINASE 39 IU/L (29-168); CREATININE, SERUM 0.71 mg/dL (0.57-1.11); EST GLOMERULAR FILTRATION RATE > 60 ML/MIN (60-); GLUCOSE 208 mg/dL (74-118); POTASSIUM 3.7 mmol/L (3.5-5.1); SODIUM 140 mmol/L (136-145)
[2018-02-16 20:22] LABS: CLARITY,URINE CLEAR (CLEAR); COLOR,URINE YELLOW (YELLOW); LEUKOCYTE ESTERASE ,URINE TRACE (NEGATIVE); NITRITE,URINE POSITIVE (NEGATIVE); PROTEIN,URINE DIPSTICK 2+ (NEGATIVE)
[2018-02-16 20:23] LABS: BILIRUBIN,URINE NEGATIVE (NEGATIVE); KETONES,URINE TRACE (NEGATIVE); URINE UROBILINOGEN 4 mg/dL (0.2 - 1)
[2018-02-16 20:37] LABS: BACTERIA,URINE FEW /HPF; EPITHELIAL CELLS,URINE RARE /LPF; RBC,URINE 0-5 /HPF (0-5); WBC,URINE (MAN) >50 /HPF (0-5)
--- NOTE | 2018-02-16 21:17 | Diagnostic Imaging Report ---
Exam: Head CT without contrast History: Weakness Comparison studies: None Technique: Axial images were obtained from the skull base to the vertex. Coronal and sagittal images reconstructed from the axial data. Dose modulation, iterative reconstruction, and/or weight based adjustment of the mA/kV was utilized to reduce the radiation dose to as low as reasonably achievable. Radiation dose: Total DLP: 1036 mGy*cm. Estimated effective dose: DLP x 0.015 Intravenous contrast: None Findings: Scalp: No abnormalities. Bones: No fractures, blastic or lytic lesions. Brain sulci: Appropriate for age. Ventricles: Normal in size and configuration. No hydrocephalus. Extra-axial spaces: No masses, no fluid collection. Parenchyma: No abnormal densities. No masses, hemorrhage, acute or chronic vascular insults. Sellar/suprasellar region: No abnormalities. Craniocervical junction: Patent foramen magnum. No Chiari one malformation. Incidental findings: Atherosclerotic calcifications in the carotid siphons, right A1 ASTER segment and in the right intradural vertebral artery. IMPRESSION: No acute intracranial abnormalities. Signed by: Dr. Jay Krishnamurthy M.D. on 02/16/2018 9:12 PM
--- NOTE | 2018-02-16 21:17 | Diagnostic Imaging Report ---
EXAM: ABDOMEN-1VIEW (KUB) DATE: 02/16/2018 7:57 PM INDICATION: Ureteral stent removed today. Low back pain. COMPARISON: Same-day retrograde pyelogram FINDINGS: LINES/TUBES: None BOWEL PATTERN: No evidence for obstruction. SOFT TISSUES: Stable punctate density projecting lateral to the expected course of the ureter when correlated with same-day retrograde pyelogram. Stable linear radiopaque densities projecting over the right abdomen. No mass effect. LUNG BASES: Clear. BONES: Degenerative changes of the lower lumbar spine and hips. No acute findings. IMPRESSION: Nonobstructive bowel gas pattern. Signed by: DR. Darius Tinajero MD on 02/16/2018 9:12 PM
--- NOTE | 2018-02-16 21:17 | Diagnostic Imaging Report ---
EXAMINATION: CHEST SINGLE (PORTABLE) INDICATION: Weakness. COMPARISON: Chest x-ray 12/30/2017. FINDINGS: AP view TUBES and LINES: None. LUNGS: Lungs are well inflated. Lungs are clear. There is no evidence of pneumonia or pulmonary edema. PLEURA: No pleural effusion or pneumothorax. HEART AND MEDIASTINUM: The cardiomediastinal silhouette is unremarkable. BONES AND SOFT TISSUES: No acute osseous lesion. Soft tissues are unremarkable. UPPER ABDOMEN: No free air under the diaphragm. IMPRESSION: No acute thoracic abnormality. Signed by: DR. Darius Tinajero MD on 02/16/2018 9:13 PM
== END 2018-02-16 21:58 | disposition home or self-care (01) ==
LOC: ER 19:37
DX: R53.1 Weakness (principal); N30.90 Cystitis, unspecified without hematuria; R51 Headache; R73.9 Hyperglycemia, unspecified; I10 Essential (primary) hypertension; F41.9 Anxiety disorder, unspecified; E05.90 Thyrotoxicosis, unspecified without thyrotoxic crisis or storm
CPT/HCPCS: 36415; 70450; 71045; 74018; 80053; 81001; 82550; 82553; 84484; 85025; 87086; 93005; 99283

== ENCOUNTER → 2018-02-16 | Day surgery (SDC) | payer OTHER ==
[~2018-02-16] MED LIST changes: +BELLADONNA/OPIUM 60 MG SUPP PR ONE; +CEFTRIAXONE SOD 1 GM/NS 50 ML 50 ML IV ONE; +DESFLURANE 240 ML BTL INH ONE; +DEXAMETHASONE SOD PHOS INJ 4 MG/ML VIAL ONE; +FENTANYL CITRATE/PF 100MCG/2 ML INJ ONE; +FLUCONAZOLE 100 MG TAB PO ONE; +FLUCONAZOLE100 MG PO; +IOPAMIDOL 610MG/1ML 300 MG/ML VIAL IV ONE; +LEVOFLOXACIN500 MG PO; +LIDOCAINE HCL 2% LOCAL INJ 5 ML SDV VIAL INJ ONE; +MIDAZOLAM HCL 2 MG/2 ML VIAL ONE; +ONDANSETRON HCL INJ 2 MG/ML VIAL ONE; +PROPOFOL IV EMULSION 10 MG/ML 20 ML VIAL ONE; +TYLENOL WITH C1 EACH PO
[2018-02-16 09:40] VITALS: BP 157/72
--- NOTE | 2018-02-16 18:39 | Operative Report ---
DATE OF PROCEDURE: February 16, 2018 PREOPERATIVE DIAGNOSES 1. Right indwelling ureteral stent. 2. Right ureteropelvic junction obstruction, status post pyeloplasty. POSTOPERATIVE DIAGNOSES 1. Right indwelling ureteral stent. 2. Right ureteropelvic junction obstruction, status post pyeloplasty. 3. Grade 3 cystocele. 4. Urethral hypermobility. 5. Atrophic (senile processes vaginitis). PROCEDURES PERFORMED: Of note, these were all staged procedures as part of a multi-stage multi-step process of managing the patient's anatomical abnormality. 1. Cystourethroscopy with complicated removal of right indwelling ureteral stents (separately performed for the diagnosis of stent done with separate scope). 2. Right ureteroscopy (separate procedure performed to evaluate the ureteropelvic junction following reconstruction). 3. Radiological services for supervision and interpretation of ureteroscopy. 4. Interpretation of retrograde ureteropyelography. 5. Supervision of fluoroscopy, no radiologist present. 6. Pelvic examination under anesthesia. ANESTHESIA: General. COMPLICATIONS: None. CLINICAL SUMMARY: Claudia Ruggiero is a 62-year-old woman who had ureteropelvic junction obstruction on the right. This is probably the etiology of her prior kidney stone, which was managed a year and half ago. The patient underwent dismembered pyeloplasty on December 28 of this year. She has a stent in place. She is brought for the above procedures. She is aware of the risks of bleeding, infection, injury to adjacent structures, need for additional procedures, and elected to proceed. OPERATIVE PROCEDURE IN DETAIL: Informed consent was verified. Claudia Ruggiero was properly identified, taken to the operating room, and placed on the cystoscopy table in the supine position. Anesthesia was uneventfully begun. The patient was then carefully and gently repositioned in the dorsal lithotomy position with all pressure points well padded. Her genitalia were prepared and draped in usual sterile fashion. A 22.5-Luxembourgish cystoscope sheath with obturator in place was atraumatically inserted into the patient's urethra and bladder was drained. Pandya endoscopy revealed no suspicious mucosal lesions, no tumors, no stones, no diverticula. There was minimal encrustation on the stent. A guidewire was then placed into the right ureter alongside of the stent and guided at the level of patient's kidney. The stent was then grasped, completely removed, and discarded. A flexile urethroscope was then brought up over the guidewire to the point just distal to the ureteropelvic junction. Contrast was injected and we then advanced the ureter. The ureteropelvic region did exhibit visibly open channel. We passed through this channel without any resistance whatsoever into the patient's chronically hydronephrotic kidney where pandya endoscopy revealed Frank's plaque throughout. There were no tumors. There were no stones. there were no diverticula. There were no suspicious mucosal lesions. We carefully re-examined the ureteropelvic junction and the entire ureter and we found them to be unremarkable. Patient's bladder was drained. The cystoscope was withdrawn. Pelvic examination under anesthesia revealed a grade 3 cystocele with urethral hypermobility and atrophic vaginitis. No suspicious mucosal lesions could be identified. There were no abnormally palpable pelvic masses. The patient was then uneventfully reversed from anesthesia and taken to recovery room in stable condition. Explicit followup instructions were given to the patient and her family and the plans will be to proceed with performing a Lasix renogram to compare to the prior obstructed Lasix renogram and also we plan on having the patient followup urologically on an indefinite basis. Job#: [id number] DEREK cc:RIA GARCIA MD
== END | disposition home or self-care (01) ==
LOC: OR 09:30
PROVIDERS: ATTEND Urology
DX: Z46.6 Encounter for fitting and adjustment of urinary device (principal); N13.1 Hydronephrosis with ureteral stricture, not elsewhere classified; N13.5 Crossing vessel and stricture of ureter without hydronephrosis; N81.10 Cystocele, unspecified; N36.41 Hypermobility of urethra; N95.2 Postmenopausal atrophic vaginitis; Z87.442 Personal history of urinary calculi; I10 Essential (primary) hypertension; K21.9 Gastro-esophageal reflux disease without esophagitis; Z96.0 Presence of urogenital implants; Z98.890 Other specified postprocedural states
CPT/HCPCS: 52351; 74420; 87086; 87186; 93005; C1758; J0696; J1100; J2001; J2250; J2405; J2704; Q9967

== ENCOUNTER 2018-02-19 09:24 | Emergency (ER) | payer OTHER ==
[~2018-02-19] VITALS: Ht 149.9 cm; Wt 63.0 kg
[~2018-02-19 09:24] MED LIST changes: +FLUCONAZOLE100 MG PO; +LEVOFLOXACIN500 MG PO
[2018-02-19 11:08] LABS: BASOPHILS # (AUTO) 0.1 (0.0-0.1); BASOPHILS % 0.7 % (0.0-1.0); EOSINOPHILS # (AUTO) 0.1 (0.0-0.4); EOSINOPHILS % 0.9 % (0.0-6.0); HEMATOCRIT 36.3 % (34.2-44.1); HEMOGLOBIN 11.4 g/dL (12.0-16.0); LYMPHOCYTES % 19.6 % (18.0-39.1); MEAN CORPUSCULAR HEMOGLOBIN 28.9 pg (28-32); MEAN CORPUSCULAR HGB CONC 31.4 g/dL (31-35); MEAN CORPUSCULAR VOLUME 91.9 fL (81-99); MONOCYTES % 9.4 % (4.4-11.3); NEUTROPHILS # (AUTO) 7.1 (2.1-6.9); NEUTROPHILS % 68.7 % (38.7-80.0); PLATELET COUNT 372 x10e3/uL (140-360); RED BLOOD COUNT 3.95 x10e6/uL (3.6-5.1); RED CELL DISTRIBUTION WIDTH 11.9 % (11.7-14.4)
[2018-02-19 11:19] LABS: CLARITY,URINE CLEAR (CLEAR); COLOR,URINE YELLOW (YELLOW)
[2018-02-19 11:20] LABS: KETONES,URINE NEGATIVE (NEGATIVE); LEUKOCYTE ESTERASE ,URINE NEGATIVE (NEGATIVE); NITRITE,URINE NEGATIVE (NEGATIVE); PROTEIN,URINE DIPSTICK NEGATIVE (NEGATIVE); URINE UROBILINOGEN 0.2 mg/dL (0.2 - 1)
[2018-02-19 11:21] LABS: BILIRUBIN,URINE NEGATIVE (NEGATIVE)
[2018-02-19 11:38] LABS: ANION GAP 14.6 mmol/L (8-16); BLOOD UREA NITROGEN 17 mg/dL (7-26); BUN/CREATININE RATIO 25 (6-25); CALCIUM 9.1 mg/dL (8.4-10.2); CARBON DIOXIDE 27 mmol/L (22-29); CHLORIDE 106 mmol/L (98-107); CREATINE KINASE 30 IU/L (29-168); CREATININE, SERUM 0.69 mg/dL (0.57-1.11); EST GLOMERULAR FILTRATION RATE > 60 ML/MIN (60-); GLUCOSE 90 mg/dL (74-118); POTASSIUM 3.6 mmol/L (3.5-5.1); SODIUM 144 mmol/L (136-145)
[2018-02-19 12:28] LABS: EPITHELIAL CELLS,URINE RARE /LPF; RENAL EPITHELIAL CELLS,URINE RARE
[2018-02-19 13:59] VITALS: BP 146/62
[2018-02-19 15:19] LABS: THYROID STIMULATING HORMONE 3.067 uIU/mL (0.350-4.940)
== END 2018-02-19 14:12 | disposition home or self-care (01) ==
LOC: ER 09:29
DX: I10 Essential (primary) hypertension (principal)
CPT/HCPCS: 36415; 80048; 81001; 82550; 82553; 84443; 84484; 85025; 87086; 93005; 99284

== ENCOUNTER → 2018-03-01 | Outpatient (CLI) | payer OTHER ==
[~2018-03-01] MED LIST changes: +FUROSEMIDE INJ 10 MG/ML 4 ML VIAL ONE
--- NOTE | 2018-03-03 12:19 | Diagnostic Imaging Report ---
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 History of renal calculi. Recent stents removed. Intermittent low back pain. Technique: Following intravenous administration of 10 mCi of Tc-99m MAG3, dynamic images of the kidneys in the posterior projection were obtained through 40 minutes. Lasix 40 mg was administered intravenously at 10 minutes post injection of the tracer. Report: Left kidney: Perfusion of the left kidney is prompt. The kidney has a reniform shape but is slightly reduced in size and has mild thinning of the renal cortex. Extraction of tracer from the blood pool is mildly decreased. Clearance of tracer from the renal parenchyma is prompt. The pelvicalyceal system is not dilated although two prominent calices are noted in the upper pole Increased pooling of tracer is seen within the upper pole calices. Drainage of tracer from the pelvicalyceal system is adequate prior to administration of Lasix. No significant stasis of tracer is seen within the left ureter. Right kidney: Perfusion to the right kidney is prompt. The right kidney has a reniform shape although is small in size and smaller than the left kidney. The renal cortex is mildly thinned. Extraction of tracer by the renal parenchyma is mildly decreased. Clearance of tracer from the renal parenchyma is prompt. Calices throughout the kidney are mildly dilated, however, the renal pelvis is not dilated. Increased pooling of tracer is seen within the calices. No net drainage of tracer from the pelvicalyceal system is seen prior to administration of Lasix. Washout of tracer from the pelvicalyceal system following administration of Lasix is rapid with a T-1/2 of 7 minutes (normal less than 15 minutes). No significant stasis of tracer is seen within the right ureter. Differential renal function: The left kidney contributes 58% of total renal function and the right kidney contributes 42% (normal 43-57%). Impression: 1. Mild medical renal disease is suspected in the left kidney. No cortical scarring is present but the kidney is small with mild thinning of the renal cortex. Two prominent calices are seen in the upper pole. No hydronephrosis is present. No physiologically significant obstruction of the renal collecting system is present. 2. Mild medical renal disease is suspected in the right kidney. The renal cortex is mildly thinned and the kidney is smaller than the left kidney. This accounts for the decreased differential function of 42%. Mild caliectasis is present but the renal pelvis is not dilated. This suggests reflux uropathy. No physiologically significant obstruction of the renal collecting system is present. Signed by: Dr. Melodie Davison M.D. on 03/03/2018 12:15 PM
== END ==
LOC: NM 14:54
PROVIDERS: ATTEND Urology
DX: N13.5 Crossing vessel and stricture of ureter without hydronephrosis (principal); N36.41 Hypermobility of urethra; N95.2 Postmenopausal atrophic vaginitis
CPT/HCPCS: 78708; A9562; J1940